=== PATIENT | female | born 1965 | race Caucasian/White ===

== ENCOUNTER 2016-08-04 22:32 | Inpatient (IN) | payer OTHER ==
[~2016-08-04 22:32] MED LIST: CIPR500T4 PO; LURA20TA PO; ONDA4 PO
[2016-08-04 22:48] VITALS: BP 129/84; PULSE 73; RESP 16; TEMP 97.8; O2SAT 98
[2016-08-04] MEDS ORDERED: traZODone HCL 100 MG TAB PO ONE (23:30)
[2016-08-04] MEDS ORDERED: ACETAMINOPHEN 325 MG TAB PO ONE (23:30)
--- NOTE | 2016-08-04 23:32 | PD ---
HPI Chief Complaint: Psychiatric Symptoms Time Seen by Provider: 23:30 Travel History International Travel<30 days: No Contact w/Intl Traveler<30days: No Traveled to known affect area: No History of Present Illness HPI Patient is a 51-year-old female transferred to [place] from [facility] for psychiatric admission. Patient is currently under Ann act for suicidal ideations. She was seen and evaluated in [facility], medically cleared and then transferred. Patient is currently reporting a headache and is requesting something to help her sleep. She states that she takes trazodone 100 mg at night. Patient's past medical history is significant for bipolar disorder, suicide attempt, depression, anxiety. PFSH Past Medical History Asthma: No Blood Disorders: No Anxiety: Yes Depression: Yes Heart Rhythm Problems: No Cancer: No Cardiovascular Problems: No High Cholesterol: No Chemotherapy: No Chest Pain: No Congestive Heart Failure: No COPD: No Diabetes: No Endocrine: No Genitourinary: No Immune Disorder: No Musculoskeletal: No Neurologic: No Psychiatric: Yes (bipolar disorder) Reproductive: No Respiratory: No Radiation Therapy: No Sleep Apnea: No Thyroid Disease: No Social History Alcohol Use: No Tobacco Use: Yes Substance Use: No Allergies-Medications (Allergen,Severity, Reaction): Coded Allergies: No Known Allergies (Unverified , 03/19/15) Reported Meds & Prescriptions Reported Meds & Active Scripts Active Zofran 4 Mg Tab (Ondansetron Hcl) 4 Mg Tab 4 Mg PO Q6HR PRN Cipro (Ciprofloxacin HCl) 500 Mg Tab 500 Mg PO BID 10 Days Reported Latuda (Lurasidone HCl) 20 Mg Tab 60 Mg PO DAILY TAKE WITH FOOD (350 CALORIES OR MORE) Review of Systems Except as stated in HPI: all other systems reviewed are Neg HENT: Positive: Headaches Physical Exam Narrative GENERAL: Well-developed, well-nourished, alert female. Resting comfortably in no acute distress. SKIN: Focused skin assessment warm/dry. HEAD: Atraumatic. Normocephalic. EYES: Pupils equal and round. No scleral icterus. No injection or drainage. ENT: No nasal bleeding or discharge. Mucous membranes pink and moist. NECK: Trachea midline. No JVD. CARDIOVASCULAR: Regular rate and rhythm. No murmur appreciated. RESPIRATORY: No accessory muscle use. Clear to auscultation. Breath sounds equal bilaterally. GASTROINTESTINAL: Abdomen soft, non-tender, nondistended. Hepatic and splenic margins not palpable. MUSCULOSKELETAL: No obvious deformities. No clubbing. No cyanosis. No edema. NEUROLOGICAL: Awake and alert. No obvious cranial nerve deficits. Motor grossly within normal limits. Normal speech. PSYCHIATRIC: Appropriate mood and affect; insight and judgment normal. Data Data Last Documented VS Vital Signs Date Time Temp Pulse Resp B/P Pulse Ox O2 Delivery O2 Flow Rate FiO2 08/04/16 22:48 97.8 73 16 129/84 98 Room Air Orders Psych Screen (08/04/16 23:02) Trazodone (Desyrel) (08/04/16 23:30) Acetaminophen (Tylenol) (08/04/16 23:30) MDM Medical Decision Making Medical Screen Exam Complete: Yes Emergency Medical Condition: Yes Medical Record Reviewed: Yes Interpretation(s) Vital Signs Date Time Temp Pulse Resp B/P Pulse Ox O2 Delivery O2 Flow Rate FiO2 08/04/16 22:48 97.8 73 16 129/84 98 Room Air Differential Diagnosis Mood disorder versus substance abuse versus suicidal ideations versus depression versus other Narrative Course Patient's 51-year-old female presenting from [facility] for psychiatric admission. Physical examination is unremarkable, patient was given acetaminophen and trazodone for her headache and for insomnia. Medical records reviewed. Patient's urine drug screen was positive for cocaine. CBC, chemistry , urinalysis is unremarkable. She was medically clear for psychiatric evaluation. Diagnosis Primary Impression: Medical clearance for psychiatric admission Condition: Stable Jenny Wiley Aug 04, 2016 23:32
[2016-08-05 02:36] VITALS: BP 105/59; PULSE 58; RESP 18; O2SAT 94
[2016-08-05 05:45] VITALS: BP 100/65; PULSE 66; RESP 19; O2SAT 97
[2016-08-05] MEDS ORDERED: TRAZ50TA12 PO (08:19)
[2016-08-05] MEDS ORDERED: IBUP400T20 PO (08:19)
[2016-08-05] MEDS ORDERED: ALBU6.7H INH (08:19)
[2016-08-05] MEDS ORDERED: LEXA10TA PO (08:19)
[2016-08-05] MEDS ORDERED: TRAM50TA PO (08:19)
[2016-08-05] MEDS ORDERED: IBUPROFEN 400 MG TAB PO ONE (09:15)
[2016-08-05 10:12] VITALS: BP 96/54; PULSE 77; RESP 18; O2SAT 96
[2016-08-05] MEDS ORDERED: ACETAMINOPHEN 325 MG TAB PO PRN ×2 (12:00→17:00)
[2016-08-05] MEDS ORDERED: traZODone HCL 50 MG TAB PO PRN (16:45)
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
[2016-08-05 17:44] VITALS: BP 138/84; PULSE 71; RESP 18; TEMP 98.5; O2SAT 98
[2016-08-05] MEDS ORDERED: hydrOXYzine HCL 50 MG TAB PO PRN (18:00)
[2016-08-05] MEDS ORDERED: ALUMINUM/MAGNESIUM/SIMETH 30 ML CUP PO PRN (18:00)
[2016-08-05] MEDS ORDERED: ALBUTEROL SULFATE 90 MCG/ACT HFA 8 GM INHALER INH PRN (18:00)
[2016-08-05 19:06] VITALS: BP 138/84; PULSE 71; RESP 16; TEMP 98.5; O2SAT 99
[2016-08-05] MEDS: IBUPROFEN 600 MG TAB PO PRN ×2 (20:33→21:47)
[2016-08-05] MEDS: traZODone HCL 50 MG TAB PO SCH (20:37)
[2016-08-05] MEDS ORDERED: BENZTROPINE MESYLATE 1 MG TAB PO PRN (21:00)
[2016-08-05] MEDS ORDERED: BENZTROPINE MESYLATE 2 MG/2 ML VIAL IM PRN (21:00)
[2016-08-06 05:34] VITALS: BP 122/68; PULSE 61; RESP 16; TEMP 97.6
[2016-08-06] MEDS: NICOTINE 21 MG/24 HR PATCH T-DERMAL SCH (08:53)
[2016-08-06] MEDS: ESCITALOPRAM OXALATE 20 MG TAB PO SCH (08:53)
[2016-08-06] MEDS: REMOVE OLD PATCH T-DERMAL SCH (09:00)
[2016-08-06] MEDS ORDERED: MAGNESIUM HYDROXIDE SUSP 30 ML CUP PO PRN (09:00)
[2016-08-06 10:14] LABS: ANION GAP 9 MEQ/L (5-15); BICARBONATE 27.5 MEQ/L (21.0-32.0); BLOOD UREA NITROGEN 15 MG/DL (7-18); CHLORIDE 105 MEQ/L (98-107); GLOMERULAR FILTRATION RATE 59 ML/MIN (>89); SODIUM (NA) 141 MEQ/L (136-145)
[2016-08-06 10:19] LABS: HDL CHOLESTEROL 67.1 MG/DL (40.0-60.0); LDL CHOLESTEROL 131 MG/DL (0-99)
--- NOTE | 2016-08-06 12:16 | HHI.PYPN ---
Subjective Remarks Patient seen and examined with nurse. Chart reviewed. I note that the patient has been declining the psychotherapeutic groups, and I have encouraged her to participate in these. Case discussed with nursing staff reports that the patient continues to endorse suicidal ideation although there seems to be a disconnect between mood and affect. On my examination today, the patient complains of anxiety. She does not describe any SI at this time. Reports ongoing stress related to "family, boyfriend, kids." Denies side effects from medications. No physical complaints. Review of Systems Except as stated in HPI: all other systems reviewed are Neg Objective Alert: Yes [place]: Person (O x 3) Mood: Depressed Affect: Blunted Memory Intact: Comment (Intact on clinical exam) Hallucinations: Other (No AVH) Delusions: No Delusion Type: Other (No delusions) Suicidal: Ideation (No SI) Homicidal: Ideation (No HI) Insight/Judgment Fair Remarks No abnormal motor movements noted. Grooming and hygiene fair. Thought process linear. Labs Test 08/06/16 09:04 Sodium Level 141 MEQ/L Potassium Level 4.0 MEQ/L Chloride Level 105 MEQ/L Carbon Dioxide Level 27.5 MEQ/L Anion Gap 9 MEQ/L Blood Urea Nitrogen 15 MG/DL Creatinine 0.99 MG/DL Estimat Glomerular Filtration 59 ML/MIN Rate Random Glucose 78 MG/DL Calcium Level 8.6 MG/DL Triglycerides Level 95 MG/DL Cholesterol Level 217 MG/DL LDL Cholesterol 131 MG/DL HDL Cholesterol 67.1 MG/DL Cholesterol/HDL Ratio 3.23 RATIO Laboratories reviewed. Decreased GFR noted. Vitals/IOs Vital Signs Date Time Temp Pulse Resp B/P Pulse Ox O2 Delivery O2 Flow Rate FiO2 08/06/16 05:34 97.6 61 16 122/68 08/05/16 19:06 99 08/05/16 10:12 Room Air Assessment & Plan Problem List: (1) Adjustment disorder with mixed disturbance of emotions and conduct ICD Code: F43.25 (2) Polysubstance abuse ICD Code: F19.10 Assessment & Plan Continue increased dose of Lexapro as ordered. Encourage hydration over the weekend and recheck a BMP for GFR Tuesday morning. Continue to monitor on the inpatient unit. Continue other medications and care as ordered. Justification for Cont. Inpt. Risk for decompensation in less restrictive environment Discharge Planning Anticipate discharge beginning of next week Request HC Surrog/Guard Advoc?: No Smith Veloz MD Aug 06, 2016 12:16
[2016-08-06 15:37] LABS: HEMOGLOBIN A1b 1.5 %; HEMOGLOBIN Ao 86.4 %; HEMOGLOBIN LA1C 1.9 %; HEMOGLOBIN P3 3.5 %
[2016-08-06 18:21] VITALS: BP 115/56; PULSE 78; RESP 16; TEMP 98.5; O2SAT 99
[2016-08-06] MEDS: traZODone HCL 50 MG TAB PO SCH (21:03)
[2016-08-07 05:39] VITALS: BP 96/67; PULSE 79; RESP 18; TEMP 98.2
[2016-08-07] MEDS: REMOVE OLD PATCH T-DERMAL SCH (09:00)
[2016-08-07] MEDS: ESCITALOPRAM OXALATE 20 MG TAB PO SCH (09:09)
[2016-08-07] MEDS: NICOTINE 21 MG/24 HR PATCH T-DERMAL SCH (09:10)
[2016-08-07] MEDS: IBUPROFEN 600 MG TAB PO PRN (09:31)
--- NOTE | 2016-08-07 15:14 | HHI.PYPN ---
Subjective Remarks Patient was seen and case discussed with nursing. Patient remains depressed mood. She remains hopeless and helpless and concerned about the future given various life stressors. She reports fleeting suicidal thoughts with no ideation intent or plan. Compliant with her medication and is social with other patients. Behaving well on the unit. Objective Alert: Yes [place]: Person (O x 3), Place, Date Mood: Depressed Affect: Restricted Memory Intact: Comment (Intact on clinical exam) Hallucinations: Other (No AVH) Delusions: No Delusion Type: Other (No delusions) Suicidal: Ideation (fleeting) Homicidal: Ideation (No HI) Insight/Judgment Fair Vitals/IOs Vital Signs Date Time Temp Pulse Resp B/P Pulse Ox O2 Delivery O2 Flow Rate FiO2 08/07/16 05:39 98.2 79 18 96/67 08/06/16 18:21 99 08/05/16 10:12 Room Air Assessment & Plan Problem List: (1) Adjustment disorder with mixed disturbance of emotions and conduct ICD Code: F43.25 (2) Polysubstance abuse ICD Code: F19.10 Assessment & Plan Continue current treatment plan Justification for Cont. Inpt. Patient will decompensate in a less restrictive setting Request HC Surrog/Guard Advoc?: No Kye Soto DO Aug 07, 2016 15:14
[2016-08-07 18:06] VITALS: BP 134/82; PULSE 68; RESP 17; TEMP 98.9; O2SAT 97
[2016-08-07] MEDS: traZODone HCL 50 MG TAB PO SCH (21:41)
[2016-08-08 06:16] VITALS: BP 119/77; PULSE 69; RESP 16; TEMP 98.1; O2SAT 97
[2016-08-08] MEDS: NICOTINE 21 MG/24 HR PATCH T-DERMAL SCH (09:00)
[2016-08-08] MEDS: REMOVE OLD PATCH T-DERMAL SCH (09:00)
[2016-08-08] MEDS: ESCITALOPRAM OXALATE 20 MG TAB PO SCH (09:11)
[2016-08-08 09:38] LABS: BICARBONATE 23.2 MEQ/L (21.0-32.0)
[2016-08-08] MEDS: IBUPROFEN 600 MG TAB PO PRN (10:11)
--- NOTE | 2016-08-08 14:51 | HHI.PYPN ---
Subjective Remarks Patient was seen and case discussed with nursing. Patient is pleasant and cooperative with exam. She is tolerating her medications well. She is joking and much brighter compared to yesterday. Social with other patients. Sleeping and eating well. Denies suicidal ideation intent or plan Objective Alert: Yes [place]: Person (O x 3), Place, Date Mood: Depressed Affect: Euthymic Memory Intact: Comment (Intact on clinical exam) Hallucinations: Other (No AVH) Delusions: No Delusion Type: Other (No delusions) Suicidal: Ideation (denies) Homicidal: Ideation (No HI) Insight/Judgment Improving Labs Test 08/08/16 08:25 Sodium Level 141 MEQ/L Potassium Level 4.0 MEQ/L Chloride Level 107 MEQ/L Carbon Dioxide Level 23.2 MEQ/L Anion Gap 11 MEQ/L Blood Urea Nitrogen 16 MG/DL Creatinine 1.02 MG/DL Estimat Glomerular Filtration 57 ML/MIN Rate Random Glucose 103 MG/DL Calcium Level 8.4 MG/DL Vitals/IOs Vital Signs Date Time Temp Pulse Resp B/P Pulse Ox O2 Delivery O2 Flow Rate FiO2 08/08/16 06:16 98.1 69 16 119/77 97 08/05/16 10:12 Room Air Assessment & Plan Problem List: (1) Adjustment disorder with mixed disturbance of emotions and conduct ICD Code: F43.25 (2) Polysubstance abuse ICD Code: F19.10 Assessment & Plan Continue current treatment plan Justification for Cont. Inpt. Patient will decompensate in a less restrictive setting Request HC Surrog/Guard Advoc?: No Kye Soto DO Aug 08, 2016 14:51
[2016-08-08 18:05] VITALS: BP 144/86; PULSE 74; RESP 19; TEMP 98.1; O2SAT 96
[2016-08-08] MEDS: traZODone HCL 50 MG TAB PO SCH (20:40)
[2016-08-09 06:04] VITALS: BP 108/56; PULSE 61; RESP 17; TEMP 97.2; O2SAT 96
[2016-08-09] MEDS: ESCITALOPRAM OXALATE 20 MG TAB PO SCH (08:43)
[2016-08-09] MEDS: NICOTINE 21 MG/24 HR PATCH T-DERMAL SCH (08:50)
[2016-08-09] MEDS: REMOVE OLD PATCH T-DERMAL SCH (08:50)
[2016-08-09] MEDS: IBUPROFEN 600 MG TAB PO PRN (08:51)
[2016-08-09] MEDS ORDERED: ESCI20TA PO (11:00)
[2016-08-09] MEDS ORDERED: TRAZ50TA12 PO (11:00)
--- NOTE | 2016-08-09 11:00 | HHI.DS ---
Psychiatry Discharge Summary Inpatient Psychiatric care?: Yes Advance Directive: No Reason Not Provided: Due to Patient Condition Mental Health AdvanceDirective: No Health Care Proxy: No Admission Admission Date Aug 05, 2016 at 16:37 Admission Diagnosis: (1) Adjustment disorder with mixed disturbance of emotions and conduct ICD Code: F43.25 (2) Polysubstance abuse ICD Code: F19.10 Brief History Mr. Crews is a 51-year-old female with a reported history of bipolar illness who presents in transfer from [facility] under a Ann act alleging thoughts of suicide. Records from outside hospital reviewed. Of note, patient's urine toxicology at outside hospital was positive for cocaine. Reviewing our own electronic medical record, I see no prior psychiatric contact within our system. Patient seen and examined. Chart reviewed. Case discussed with nurse in the J- pod. On my examination today, the patient presents as somewhat tearful and dysphoric. She says that she has been fighting with her boyfriend because he has recently come into some money and doesn't want her to stay with him anymore. She says that he recently kicked her out and she has been homeless for the last several days. She also says that she is stressed out because her children won't talk with her because they don't believe that she has psychiatric problems. She initially claims suicidal ideation but with further questioning this seems more fam to passive thoughts of saying "I don't want to live anymore." She does not verbalize any suicide plan or intent. She complains of low mood. She reports that her sleep is fair only with the help of trazodone. Appetite is poor. She is somewhat anhedonic. She is riddled with guilt and shame by her report. She describes no current hypomanic or manic symptoms, nor does she give any history consistent with river trey hypomania or jordan in the past. She denies ever having experienced audiovisual hallucinations and I can elicit no delusional beliefs. The remainder of the psychiatric ROS is negative. Patient complains of chronic low back pain for which she takes ibuprofen and tramadol but otherwise has no physical complaints. Past psychiatric history: Patient reports a history of bipolar disorder. She reports that she is followed at the [facility] in [place] and is prescribed Lexapro 10 mg daily and trazodone 100 mg at bedtime. She reports that she was admitted one or 2 years ago at [place]. She reports 2 prior suicide attempts, both by overdose, and 2006 and 2008. Tobacco Use In Past 30 Days: 5 or More Cigarettes/Day Alcohol Use: Never Hospital Course Patient was admitted to a locked, inpatient psychiatric unit. Appropriate precautions were in place throughout patient's hospital stay. Patient was seen and examined daily on the unit by psychiatry and also visited by counselor. Medications were adjusted. Patient's Lexapro was titrated for mood. Patient tolerated medications well without side effects. Patient had improvement in her presenting psychiatric symptomatology. There was no evidence of any suicidal or homicidal behavior on the unit. Charting indicates that the patient is sleeping and eating well. On the day of discharge: Patient seen and examined with nurse. Chart reviewed. Case discussed with nursing staff. Per nursing staff, the patient has been no behavioral problem on the unit. On my examination today, the patient presents with a good mood. She feels much improved versus admission and is requesting discharge from the inpatient psychiatric unit. She denies any suicidal or homicidal ideation, intent or plan. I can elicit no depressive or hypomanic/manic symptoms at this time. She denies any audiovisual hallucinations and I can elicit no delusional beliefs. She denies side effects from medications. She has no physical complaints. We discuss her follow-up plan regarding her chemical dependency issues and she says that she plans to reconnect with her sponsor and resume going to 12-step meetings. Patient is also agreeable to psychiatric follow-up on an outpatient basis. Weighing the acute, chronic, and protective factors and based on the available evidence, I electrical experimental mechanic to a reasonable degree of medical certainty that the patient is at low imminent risk of harm to self or others from a mental illness as defined under the Ann act and her level of function is adequate for outpatient care. Patient has maximized benefit from this inpatient psychiatric hospital stay and will be discharged today with psychiatric follow-up as arranged by counselor. Patient is also follow-up with primary care. I have counseled the patient to return to the psychiatric emergency room for concerning psychiatric symptoms as part of the general safety plan. Results Blood Pressure 108 / 56 Vital Signs Date Time Temp Pulse Resp B/P Pulse Ox O2 Delivery O2 Flow Rate FiO2 08/09/16 06:04 97.2 61 17 108/56 96 08/05/16 10:12 Room Air Laboratory Tests Test 08/08/16 08:25 Creatinine 1.02 MG/DL (0.50-1.00) Estimat Glomerular Filtration 57 ML/MIN (>89) Rate Calcium Level 8.4 MG/DL (8.5-10.1) Laboratory Results Test 08/06/16 09:04 Hemoglobin A1c 5.3 % (4.3-6.0) Triglycerides Level 95 MG/DL (42-150) Cholesterol Level 217 MG/DL (120-200) LDL Cholesterol 131 MG/DL (0-99) HDL Cholesterol 67.1 MG/DL (40.0-60.0) Summary of Procedures None done Imaging None done Pending results at discharge: No Medications # of Antipsychotic meds at D/C: 0 Approp Antipsych med options 1 - Minimum of three failed multiple trials of monotherapy. 2 - Documented plan to taper to monotherapy due to previous use of multiple meds OR cross-taper in progress at D/C. 3 - Documentation of augmentation of Clozapine. 4 - Justification other than those listed in allowable values 1-3, document here : Discharge Discharge Date: Aug 09, 2016 Discharge Diagnosis: (1) Adjustment disorder with mixed disturbance of emotions and conduct Diagnosis: Principal (resolved) ICD Code: F43.25 (2) Polysubstance abuse Diagnosis: Secondary (counseled to quit) ICD Code: F19.10 GAF is 60 presently Mental Status Exam at Disch Patient is casually dressed. She is well groomed. She is awake and alert and oriented to person and hospital at least. No evidence of delirium. No abnormal motor movements noted. Speech is within normal limits for rate, tone and volume. Language and fund of knowledge seem average. Mood is good and affect is full and reactive. Thought process linear. No loosening of associations. No evident delusions. Denies audiovisual hallucinations. Denies suicidal or homicidal ideation, intent or plan. Insight and judgment are fair. Pt Condition on Discharge: Stable Discharge Disposition: Discharge Home Discharge Instructions Diet Instructions: As Tolerated, No Restrictions Activities you can perform: Weight Bearing as Tamy Scheduled Appointment: as per counselor's notes New Medications: Escitalopram (Escitalopram) 20 Mg Tab 20 MG PO DAILY Mental Health Days 15 Ref 1 TAB Trazodone (Trazodone) 50 Mg Tab 100 MG PO HS Sleep Days 15 Ref 1 TAB Continued Medications: Albuterol 6.7 GM Inh (Proventil Hfa 6.7 GM Inh) 90 Mcg/Act Aer 2 PUFF INH Q6H PRN WHEEZING #1 Ref 0 INHALER Discontinued Medications: Tramadol (Tramadol) 50 Mg Tab 50 MG PO BID PRN PAIN Ref 0 TAB Trazodone (Trazodone) 50 Mg Tab 100 MG PO HS Control Depression #30 Ref 0 TAB Discharge Time <= 30 minutes Discharge/Advance Care Plan Health Problems: (1) Adjustment disorder with mixed disturbance of emotions and conduct (2) Polysubstance abuse Goals to promote your health * To prevent worsening of your condition and complications * To maintain your health at the optimal level Directions to meet your goals Take your medications as prescribed Follow your dietary instruction Follow activity as directed Keep your appointments as scheduled Take your immunizations and boosters as scheduled If your symptoms worsen call your PCP, if no PCP go to Urgent Care Center or Emergency Room For 20/09 questions related to your inpatient stay or results of tests pending at discharge, please contact Dr. Smith Veloz at Smoking is Dangerous to Your Health. Avoid second hand smoking Smith Veloz MD Aug 09, 2016 11:00
== END 2016-08-09 14:40 | disposition home or self-care (01) | DRG 882 ==
LOC: NEDAMB 22:32 → NEDA 08-05 16:37 → H260 08-05 17:34
PROVIDERS: ADMIT Psychiatry & Neurology Psychiatry; ATTEND Psychiatry & Neurology Psychiatry
DX: F43.25 Adjustment disorder with mixed disturbance of emotions and conduct (principal); F11.20 Opioid dependence, uncomplicated; R45.851 Suicidal ideations; G89.29 Other chronic pain; M54.5 Low back pain; R73.9 Hyperglycemia, unspecified; G47.00 Insomnia, unspecified; F14.10 Cocaine abuse, uncomplicated; F17.210 Nicotine dependence, cigarettes, uncomplicated; F31.9 Bipolar disorder, unspecified; F41.9 Anxiety disorder, unspecified; Z59.0 Homelessness; Z81.8 Family history of other mental and behavioral disorders; Z91.410 Personal history of adult physical and sexual abuse; Z91.5 Personal history of self-harm
CPT/HCPCS: 80048; 80061; 83036

== ENCOUNTER 2016-08-28 19:39 | Emergency (ER) | payer OTHER ==
[~2016-08-28] VITALS: Ht 170.2 cm; Wt 91.0 kg
[~2016-08-28 19:39] MED LIST changes: +ALBU6.7H INH; -CIPR500T4 PO; +ESCI20TA PO; -LURA20TA PO; -ONDA4 PO; +TRAZ50TA12 PO
[2016-08-28 19:40] VITALS: BP 156/105; PULSE 100; RESP 16; TEMP 99; O2SAT 95
--- NOTE | 2016-08-28 21:51 | PD ---
HPI Chief Complaint: Psychiatric Symptoms Time Seen by Provider: 21:50 Travel History International Travel<30 days: No Contact w/Intl Traveler<30days: No Traveled to known affect area: No History of Present Illness HPI 51-year-old white female presents to emergency department on a voluntary basis for psychological evaluation. She states that she is tired of living. She states that she had just gotten sober off drugs. Tigre Fishman was supposed to set her up with a sober living facility but when she went there today her name was not on the list. She states that she wandered around the [place] then decided that she was suicidal because she had nowhere to go. She has no active plan on self-harm. No homicidal ideation. No toxic ingestions. She states that she was addicted to opiates but has been sober now for several months. She denies any alcohol. She does smoke cigarettes. She denies any medical complaints. PFSH Past Medical History Narrative Medical Anxiety, depression, substance abuse Asthma: No Blood Disorders: No Bipolar Disorder: Yes Anxiety: Yes Depression: Yes Heart Rhythm Problems: No Cancer: No Cardiovascular Problems: No High Cholesterol: No Chemotherapy: No Chest Pain: No Congestive Heart Failure: No COPD: No Diabetes: No Endocrine: No Gastrointestinal Disorders: Yes Genitourinary: No Headaches: No Immune Disorder: No Musculoskeletal: No Neurologic: No Psychiatric: Yes (Bipolar, Anxiety and Opiate Dependence ) Reproductive: No Respiratory: No Radiation Therapy: No Seizures: No Sleep Apnea: No Thyroid Disease: No Tetanus Vaccination: Unknown Influenza Vaccination: Yes ?: Not Past Surgical History Narrative Surgical Tonsillectomy, 2 Section: Yes (X2) Tonsillectomy: Yes Other Surgery: Yes (C SECTION X2 ) Social History Alcohol Use: No Tobacco Use: Yes (A FEW CIG PER DAY) Substance Use: Yes (CRACK RARELY (IN RECOVERY)) Allergies-Medications (Allergen,Severity, Reaction): Coded Allergies: No Known Allergies (Unverified , 08/28/16) Reported Meds & Prescriptions Reported Meds & Active Scripts Active Trazodone (Trazodone HCl) 50 Mg Tab 100 Mg PO HS 15 Days Escitalopram (Escitalopram Oxalate) 20 Mg Tab 20 Mg PO DAILY 15 Days Reported Proventil Hfa 6.7 GM Inh (Albuterol Sulfate) 90 Mcg/Act Aer 2 Puff INH Q6H PRN Review of Systems Except as stated in HPI: all other systems reviewed are Neg Physical Exam Narrative GENERAL: Well-nourished, well-developed patient. SKIN: Warm and dry. HEAD: Normocephalic and atraumatic. EYES: No scleral icterus. No injection or drainage. ENT: No nasal drainage noted. Mucous membranes pink. Airway patent. NECK: Supple, trachea midline. Moves head freely without obvious discomfort. CARDIOVASCULAR: Regular rate and rhythm without murmurs, gallops, or rubs. RESPIRATORY: Breath sounds equal bilaterally. No accessory muscle use. GASTROINTESTINAL: Abdomen soft, non-tender, nondistended. EXTREMITIES: No cyanosis or edema. BACK: Nontender without obvious deformity. No CVA tenderness. NEURO: Patient is alert and oriented. no sensorimotor deficits. Nonfocal. Normal speech. PSYCH: No delusions. No auditory or visual hallucinations. Data Data Last Documented VS Vital Signs Date Time Temp Pulse Resp B/P Pulse Ox O2 Delivery O2 Flow Rate FiO2 08/28/16 19:40 99.0 100 16 156/105 95 Room Air Orders Complete Blood Count With Diff (08/28/16 21:48) Comprehensive Metabolic Panel (08/28/16 21:48) Psych Screen (08/28/16 21:48) Drug Screen, Random Urine (08/28/16 21:48) Alcohol (Ethanol) (08/28/16 21:48) Salicylates (Aspirin) (08/28/16 21:48) Tylenol (Acetaminophen) (08/28/16 21:48) MDM Medical Decision Making Medical Screen Exam Complete: Yes Emergency Medical Condition: Yes Medical Record Reviewed: Yes Differential Diagnosis MDM: High Differential diagnoses: Schizophrenia, schizoaffective disorder, bipolar, anxiety, depression, adjustment reaction, mood disorder NOS, ODD, depressive disorder NOS, dementia, dementia with agitation, psychosis NOS, substance induced mood disorder, intermittent explosive disorder, Asperger syndrome, infection,electrolyte abnormality, malingering. Narrative Course Mental health screening discussed with the patient. Psychiatric screen ordered. Patient's been medically cleared. This is depression, malingering, history of substance abuse Diagnosis Primary Impression: Medical clearance for psychiatric admission Additional Impressions: depression Malingering History of substance abuse history substance abuse Condition: Stable Eriberto Magallon Aug 28, 2016 21:51
[2016-08-28 23:44] LABS: AMPHETAMINE, URINE NEG (NEG); BARBITURATES, URINE NEG (NEG); COCAINE, URINE NEG (NEG)
[2016-08-28 23:46] LABS: ALT (GPT) 23 U/L (10-53); ANION GAP 6 MEQ/L (5-15); AST (GOT) 19 U/L (15-37); BICARBONATE 29.9 MEQ/L (21.0-32.0); BLOOD UREA NITROGEN 15 MG/DL (7-18); CHLORIDE 105 MEQ/L (98-107); GLOMERULAR FILTRATION RATE 66 ML/MIN (>89); POTASSIUM 3.7 MEQ/L (3.5-5.1); SODIUM (NA) 141 MEQ/L (136-145)
[2016-08-28 23:48] LABS: ALKALINE PHOSPHATASE 88 U/L (45-117); TOTAL BILIRUBIN ADULT 0.4 MG/DL (0.2-1.0)
[2016-08-28 23:50] LABS: ACETAMINOPHEN LESS THAN 2.0 MCG/ML (10.0-30.0)
[2016-08-29 00:18] LABS: AUTOMATED NEUTROPHIL # 4.4 TH/MM3 (1.8-7.7); BASOPHIL # 0.1 TH/MM3 (0-0.2); BASOPHIL % 0.8 % (0.0-2.0); EOSINOPHIL # 0.4 TH/MM3 (0-0.4); EOSINOPHIL % 3.9 % (0.0-4.0); HEMATOCRIT 39.8 % (35.0-46.0); HEMO FLAGS DIFF FINAL; LYMPH % 37.9 % (9.0-44.0); LYMPHOCYTE # 3.4 TH/MM3 (1.0-4.8); MEAN CELL VOLUME 85.2 FL (80.0-100.0); MEAN CORPUSCULAR HEMOGLOBIN 28.4 PG (27.0-34.0); MEAN CORPUSCULAR HGB CONC 33.4 % (32.0-36.0); MONO % 8.7 % (0.0-8.0); NEUT % 48.7 % (16.0-70.0); PLATELET COUNT 251 TH/MM3 (150-450); RED BLOOD COUNT 4.68 MIL/MM3 (4.00-5.30); RED CELL DISTRIBUTION WIDTH 12.7 % (11.6-17.2); WHITE BLOOD COUNT 9.1 TH/MM3 (4.0-11.0)
[2016-08-29 01:14] VITALS: BP 142/89; PULSE 81; RESP 18; TEMP 97.2; O2SAT 99
[2016-08-29] MEDS ORDERED: LEXA10TA PO (02:07)
[2016-08-29 10:36] VITALS: BP 116/68; PULSE 90; RESP 16; TEMP 98.6; O2SAT 97
[2016-08-29 14:25] VITALS: BP 140/88; PULSE 69; RESP 18; TEMP 96.4; O2SAT 97
[2016-08-29 14:29] VITALS: BP 118/83; PULSE 73; RESP 16; TEMP 98.7; O2SAT 96
--- NOTE | 2016-08-29 17:07 | PD ---
History of Present Illness Chief Complaint: Psychiatric Symptoms Time Seen by Provider: 17:00 Travel History International Travel<30 Days: No Contact w/Intl Traveler<30days: No Known affected area: No Legal Status Legal Status: Voluntary History of Present Illness: 51-year-old female who got dumped by her boyfriend approximately one week ago after relapsing with alcohol. Patient has a long history of alcohol abuse. She 's been with the boyfriend for 12 years. She reportedly went through detox and rehabilitation prior to her last slip. After her recent slip, she completed detox again. She apparently went to live at a sober living facility and land and was told that [facility] had not put her on their list. When she returned to [facility] they said she could not stay there so she got on the bus and came to [place]. She continues to describe herself as hopeless, helpless and suicidal. PFSH Past Medical History Asthma: No Blood Disorders: No Bipolar Disorder: Yes Anxiety: Yes Depression: Yes Heart Rhythm Problems: No Cancer: No Cardiovascular Problems: No High Cholesterol: No Chemotherapy: No Chest Pain: No Congestive Heart Failure: No COPD: No Diabetes: No Endocrine: No Gastrointestinal Disorders: Yes Genitourinary: No Headaches: No Immune Disorder: No Musculoskeletal: No Neurologic: No Psychiatric: Yes (Bipolar, Anxiety and Opiate Dependence ) Reproductive: No Respiratory: No Radiation Therapy: No Seizures: No Sleep Apnea: No Thyroid Disease: No Tetanus Vaccination: Unknown Influenza Vaccination: Yes ?: Not Past Surgical History Section: Yes (X2) Tonsillectomy: Yes Other Surgery: Yes (C SECTION X2 ) Psychiatric History Psychiatric History Hx Psychiatric Treatment: SMA/ACT HX: BIPOLAR AND DEPRESSION. This physician does not find the patient demonstrates significant objective clinical signs of bipolar disorder. Furthermore, her depressive presentation appears to be much more situationally based. She states if she was admitted to sober living house, she would not be suicidal. History of Inpatient Treatment: Yes Guns or firearms in home: No Social History Hx Alcohol Use: No Hx Tobacco Use: Yes (A FEW CIG PER DAY) Hx Substance Use: Yes (OPIATES (RECOVERED)) Substance Use Type: Crack, Synth Opiates-Pain Pills Hx of Substance Use Treatment: Yes Allergies-Medications (Allergen,Severity, Reaction): Coded Allergies: No Known Allergies (Unverified , 08/28/16) Reported Meds & Prescriptions Reported Meds & Active Scripts Active Trazodone (Trazodone HCl) 50 Mg Tab 100 Mg PO HS 15 Days Reported Lexapro (Escitalopram Oxalate) 10 Mg Tab 10 Mg PO DAILY Review of Systems Except as stated in HPI: all other systems reviewed are Neg Exam Alert: Yes [place]: Person, Place, Date, Situation Mood: Calm Affect: Appropriate Speech: Clear, Logical Eye Contact: Normal Memory Intact: Immediate, Recent, Remote Suicidal: Ideation Insight/Judgement Adequate MDM Medical Decision Making Medical Record Reviewed: Yes Assessment/Plan 51-year-old female with suicidal ideation, helplessness and hopelessness. Patient says she was turned away from sober living house because Tigre Quvium act did not put her on the list as they had indicated to her. This physician feels she should be kept overnight and we will investigate her story tomorrow morning. If indeed they have made a mistake, Tigre Marchman can corrected. If she is not telling the truth, she will likely be discharged. Patient is felt to be a manipulative addict and has not necessarily told the entire truth. Orders Complete Blood Count With Diff (08/28/16 21:48) Comprehensive Metabolic Panel (08/28/16 21:48) Psych Screen (08/28/16 21:48) Drug Screen, Random Urine (08/28/16 21:48) Alcohol (Ethanol) (08/28/16 21:48) Salicylates (Aspirin) (08/28/16 21:48) Tylenol (Acetaminophen) (08/28/16 21:48) Diet Regular Basic (08/29/16 Breakfast) Diet Regular Basic (08/29/16 Lunch) Diet Regular Basic (08/29/16 Dinner) Results Vital Signs Date Time Temp Pulse Resp B/P Pulse Ox O2 Delivery O2 Flow Rate FiO2 08/29/16 14:29 98.7 73 16 118/83 96 Room Air 08/29/16 14:25 96.4 69 18 140/88 97 Room Air 08/29/16 10:36 98.6 90 16 116/68 97 Room Air 08/29/16 01:14 97.2 81 18 142/89 99 08/28/16 19:40 99.0 100 16 156/105 95 Room Air Laboratory Tests Test 08/28/16 08/28/16 22:55 23:00 Urine Opiates Screen NEG Urine Barbiturates Screen NEG Urine Amphetamines Screen NEG Urine Benzodiazepines Screen NEG Urine Cocaine Screen NEG Urine Cannabinoids Screen NEG Sodium Level 141 Potassium Level 3.7 Chloride Level 105 Carbon Dioxide Level 29.9 Anion Gap 6 Blood Urea Nitrogen 15 Creatinine 0.90 Estimat Glomerular Filtration 66 Rate Random Glucose 81 Calcium Level 9.2 Total Bilirubin 0.4 Aspartate Amino Transf 19 (AST/SGOT) Alanine Aminotransferase 23 (ALT/SGPT) Alkaline Phosphatase 88 Total Protein 8.3 Albumin 4.4 Acetaminophen Level LESS THAN 2.0 Ethyl Alcohol Level LESS THAN 3 White Blood Count 9.1 Red Blood Count 4.68 Hemoglobin 13.3 Hematocrit 39.8 Mean Corpuscular Volume 85.2 Mean Corpuscular Hemoglobin 28.4 Mean Corpuscular Hemoglobin 33.4 Concent Red Cell Distribution Width 12.7 Platelet Count 251 Mean Platelet Volume 9.2 Neutrophils (%) (Auto) 48.7 Lymphocytes (%) (Auto) 37.9 Monocytes (%) (Auto) 8.7 Eosinophils (%) (Auto) 3.9 Basophils (%) (Auto) 0.8 Neutrophils # (Auto) 4.4 Lymphocytes # (Auto) 3.4 Monocytes # (Auto) 0.8 Eosinophils # (Auto) 0.4 Basophils # (Auto) 0.1 CBC Comment DIFF FINAL Differential Comment Salicylates Level LESS THAN 1.7 Diagnosis Primary Impression: Adjustment disorder with mixed disturbance of emotions and conduct Additional Impression: Opiate abuse, episodic Condition: Stable Problem Qualifiers Ricci West MD Aug 29, 2016 17:07
[2016-08-30 02:01] VITALS: BP 119/74; PULSE 89; RESP 18; TEMP 97.1; O2SAT 98
[2016-08-30] MEDS ORDERED: ACETAMINOPHEN 325 MG TAB PO ONE (05:15)
[2016-08-30 06:32] VITALS: BP 117/84; PULSE 68; RESP 16; TEMP 97.6; O2SAT 97
[2016-08-30 06:46] VITALS: BP 117/84; PULSE 68; RESP 16; TEMP 97.6; O2SAT 97
[2016-08-30 09:30] VITALS: BP 117/84; TEMP 98
== END 2016-08-30 08:27 | disposition home or self-care (01) ==
LOC: NEPD 19:39 → NEPJ 08-30 08:27
DX: F43.25 Adjustment disorder with mixed disturbance of emotions and conduct (principal); F41.8 Other specified anxiety disorders; F31.9 Bipolar disorder, unspecified; F11.20 Opioid dependence, uncomplicated; Z72.0 Tobacco use; Z76.5 Malingerer [conscious simulation]
CPT/HCPCS: 80053; 80307; 85025; 99284